=== PATIENT | female | born 1975 | race Two or more races ===

== ENCOUNTER 2018-01-04 11:42 | Observation (INO) | payer MEDICAID ==
--- NOTE | 2018-01-04 13:36 | EDPHY ---
H & P Stated Complaint: LRQ ABD PAIN, RADIATING LOWER BACK/SINCE 0900 Time Seen by Provider: 01/04/18 13:35 HPI/ROS: CHIEF COMPLAINT: Right lower quadrant abdominal pain HISTORY OF PRESENT ILLNESS: 42-year-old female with abdominal surgery only significant for complaining of sudden onset right lower quadrant abdominal pain since 9:30 a.m. Today. Nonradiating. No nausea or vomiting. No abnormal vaginal bleeding or discharge. Menstrual period started today. No back or flank pain. No fever or chills. No trauma. No urinary abnormality. Last oral intake was a bowl of cream of wheat at 9:00 a.m. 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 Appears uncomfortable. 2) HEAD: Normocephalic, atraumatic 3) HEENT: Pupils equal, round, reactive to light bilaterally. Sclera anicteric. [Nasopharynx, oropharynx, clear, no lesions. Moist mucous membrane 4) NECK: Full range of motion, no meningeal signs. 5) LUNGS: Clear auscultation bilaterally, no wheezes, no rhonchi, no retractions. 6) HEART: Regular rate and rhythm, no murmur, no heave, no gallop. 7) ABDOMEN: No guarding, tender to palpation right lower quadrant, negative Bruce's, negative Rovsing's, negative peritoneal sign, 8) MUSCULOSKELETAL: Moving all extremities, no focal areas of tenderness, no obvious trauma. No peripheral edema or discoloration. 9) BACK: No CVA tenderness, no midline vertebral tenderness, no fluctuance, no step-off, no obvious trauma, no visual or palpable abnormality. 10) SKIN: No rash, no petechiae. 11) Psychiatric: Patient is oriented X 3, there is no agitation. DIFFERENTIAL DIAGNOSIS: My differential diagnosis includes, but is not limited to, acute appendicitis, acute cholecystitis, bowel obstruction, acute pancreatitis, ovarian torsion, ectopic , gastritis and urinary tract infection. The patient understands that this diagnosis is provisional and can never be 100% accurate. This is a partial list of diagnoses considered. These considerations are based on history, physical exam, past history and reassessment. - Personal History LMP (Females 10-55): Now Current Tetanus Diphtheria and Acellular Pertussis (TDAP): Yes - Medical/Surgical History Hx Asthma: No Hx Chronic Respiratory Disease: No Hx Diabetes: Yes Hx Cardiac Disease: No Hx Renal Disease: No Hx Cirrhosis: No Hx Alcoholism: No Hx HIV/AIDS: No Hx Splenectomy or Spleen Trauma: No Other PMH: DIABETES II - Social History Smoking Status: Never smoked Constitutional: Initial Vital Signs Temperature (C) 36.4 C 01/04/18 11:46 Heart Rate 78 01/04/18 11:46 Respiratory Rate 16 01/04/18 11:46 Blood Pressure 109/78 01/04/18 11:46 O2 Sat (%) 98 01/04/18 11:46 O2 Delivery Mode Room Air Allergies/Adverse Reactions: No Known Allergies Allergy (Unverified 01/04/18 11:45) Home Medications: Medication Instructions Recorded Insulin Detemir [Levemir] 20 unit SQ BID 01/04/18 Naproxen Sodium [Aleve 220 MG (*)] 220 mg PO BID PRN 01/04/18 glipiZIDE [Glucotrol] 10 mg PO DAILY 01/04/18 Medical Decision Making - Diagnostics Imaging Results: Imaging Impressions Abdomen Ultrasound 01/04/18 13:41 Impression: Acute appendicitis. Findings and recommendations discussed with Emergency Department physician, Harrison Ayoub PA-C, at 1505 hours, on January 04, 2018. Final report concurs with initial preliminary interpretation. Pelvic/Renal Ultrasound 01/04/18 13:41 Impression: Normal ultrasound pelvis. Findings and recommendations discussed with Emergency Department physician, Angela Ayoub at 15:05 hour, 01/04/2018. Final report concurs with initial preliminary interpretation. Images reviewed myself ED Course/Re-evaluation: 1:42 p.m.: Last oral intake 9:00 a.m. today. Will obtain laboratory studies including pelvic and transabdominal ultrasound. Care of patient under supervision of secondary supervising physician Dr Rojas with whom I discussed case 3:04 p.m.: Ultrasound is positive for appendicitis interpreted by staff radiologist will consult with surgery 3:07 p.m.: Phone consultation with on-call surgery Dr. Arcenio Awan who will evaluate patient, recommended IV Invanz. - Data Points Laboratory Results: Laboratory Results 01/04/18 13:42 01/04/18 13:42 01/04/1818 01/04/18 13:42 13:42 13:42 WBC 8.16 10^3/uL 10^3/uL (3.80-9.50) RBC 4.78 10^6/uL 10^6/uL (4.18-5.33) Hgb 15.3 g/dL g/dL (12.6-16.3) Hct 43.1 % % (38.0-47.0) MCV 90.2 fL fL (81.5-99.8) MCH 32.0 pg pg (27.9-34.1) MCHC 35.5 g/dL g/dL (32.4-36.7) RDW 11.7 % % (11.5-15.2) Plt Count 256 10^3/uL 10^3/uL (150-400) MPV 10.6 fL fL (8.7-11.7) Neut % (Auto) 66.7 % % (39.3-74.2) Lymph % (Auto) 26.2 % % (15.0-45.0) [place] % (Auto) 6.3 % % (4.5-13.0) Eos % (Auto) 0.5 % L % (0.6-7.6) Baso % (Auto) 0.1 % L % (0.3-1.7) Nucleat RBC Rel Count 0.0 % % (0.0-0.2) Absolute Neuts (auto) 5.44 10^3/uL 10^3/uL (1.70-6.50) Absolute Lymphs (auto) 2.14 10^3/uL 10^3/uL (1.00-3.00) Absolute Monos (auto) 0.51 10^3/uL 10^3/uL (0.30-0.80) Absolute Eos (auto) 0.04 10^3/uL 10^3/uL (0.03-0.40) Absolute Basos (auto) 0.01 10^3/uL L 10^3/uL (0.02-0.10) Absolute Nucleated RBC 0.00 10^3/uL 10^3/uL (0-0.01) Immature Gran % 0.2 % % (0.0-1.1) Immature Gran # 0.02 10^3/uL 10^3/uL (0.00-0.10) Sodium 138 mEq/L mEq/L (135-145) Potassium 4.1 mEq/L mEq/L (3.3-5.0) Chloride 103 mEq/L mEq/L (97-110) Carbon Dioxide 23 mEq/l mEq/l (22-31) Anion Gap 12 mEq/L mEq/L (8-16) BUN 9 mg/dL mg/dL (7-23) Creatinine 0.5 mg/dL L mg/dL (0.6-1.0) Estimated GFR > 60 Glucose 197 mg/dL H mg/dL (70-100) Calcium 9.1 mg/dL mg/dL (8.5-10.4) Total Bilirubin 1.2 mg/dL mg/dL (0.1-1.4) Conjugated Bilirubin 0.4 mg/dL mg/dL (0.0-0.5) Unconjugated Bilirubin 0.8 mg/dL mg/dL (0.0-1.1) AST 22 IU/L IU/L (14-46) ALT 35 IU/L IU/L (9-52) Alkaline Phosphatase 125 IU/L IU/L (38-126) Total Protein 7.3 g/dL g/dL (6.3-8.2) Albumin 4.1 g/dL g/dL (3.5-5.0) Lipase 188 IU/L IU/L (23-300) Beta HCG, Qual NEGATIVE Urine Color Urine Appearance Urine pH Ur Specific [place] Urine Protein Urine Ketones Urine Blood Urine Nitrate Urine Bilirubin Urine Urobilinogen Ur Leukocyte Esterase Urine RBC Urine WBC Ur Epithelial Cells Urine Bacteria Urine Mucus Urine Glucose 01/04/18 12:05 WBC RBC Hgb Hct MCV MCH MCHC RDW Plt Count MPV Neut % (Auto) Lymph % (Auto) [place] % (Auto) Eos % (Auto) Baso % (Auto) Nucleat RBC Rel Count Absolute Neuts (auto) Absolute Lymphs (auto) Absolute Monos (auto) Absolute Eos (auto) Absolute Basos (auto) Absolute Nucleated RBC Immature Gran % Immature Gran # Sodium Potassium Chloride Carbon Dioxide Anion Gap BUN Creatinine Estimated GFR Glucose Calcium Total Bilirubin Conjugated Bilirubin Unconjugated Bilirubin AST ALT Alkaline Phosphatase Total Protein Albumin Lipase Beta HCG, Qual Urine Color YELLOW Urine Appearance CLEAR Urine pH 5.0 (5.0-7.5) Ur Specific [place] 1.028 (1.002-1.030) Urine Protein NEGATIVE (NEGATIVE) Urine Ketones NEGATIVE (NEGATIVE) Urine Blood 2+ H (NEGATIVE) Urine Nitrate NEGATIVE (NEGATIVE) Urine Bilirubin NEGATIVE (NEGATIVE) Urine Urobilinogen NEGATIVE EU EU (0.2-1.0) Ur Leukocyte Esterase 1+ H (NEGATIVE) Urine RBC 10-15 /hpf H /hpf (0-3) Urine WBC 25-50 /hpf H /hpf (0-3) Ur Epithelial Cells TRACE /lpf /lpf (NONE-1+) Urine Bacteria TRACE /hpf H /hpf (NONE SEEN) Urine Mucus TRACE /lpf /lpf (NONE-1+) Urine Glucose 3+ H (NEGATIVE) Medications Given: Sodium Chloride (Ns) 1,000 mls @ 0 mls/hr IV ONCE ONE PRN Reason: Wide Open Stop: 01/04/18 15:28 Last Admin: 01/04/18 15:28 Dose: 1,000 mls Ketorolac Tromethamine (Toradol) 15 mg IVP ONCE ONE Stop: 01/04/18 15:38 Last Admin: 01/04/18 15:39 Dose: 15 mg Discontinued Medications Ertapenem 1 gm/ Sodium (Chloride) 100 mls @ 200 mls/hr IV EDNOW ONE PRN Reason: Protocol Stop: 01/04/18 15:37 Last Admin: 01/04/18 15:32 Dose: 100 mls Departure - Departure Disposition: [facility] Acute Clinical Impression: Acute appendicitis Qualifiers: Acute appendicitis type: with localized peritonitis Qualified Code(s): K35.3 - Acute appendicitis with localized peritonitis Urinary tract infection Qualifiers: Urinary tract infection type: acute cystitis Hematuria presence: with hematuria Qualified Code(s): N30.01 - Acute cystitis with hematuria Condition: Fair
[2018-01-04 13:52] LABS: PLATELET COUNT 256 10^3/uL (150-400)
[2018-01-04] MEDS ORDERED: ERTAPENEM 1 GM in NS 100 ML IV ONE (15:08)
[2018-01-04] MEDS ORDERED: NS 1,000 ML IV ONE (15:27)
[2018-01-04] MEDS ORDERED: KETOROLAC 15 MG/1 ML SDV ONE (15:37)
[2018-01-04] MEDS ORDERED: KETOROLAC 15 MG/1 ML SDV IVP ONE (15:37)
[2018-01-04] MEDS ORDERED: BUPIVACAINE 0.25% 30 ML SDV ONE (15:53)
[2018-01-04] MEDS ORDERED: LR 1,000 ML IV ONE (16:22)
--- NOTE | 2018-01-04 16:27 | PDGENHP ---
History and Physical - Chief Complaint Abd Pain - History of Present Illness 42 y/o female awoke this morning with nausea and then after eating a light breakfast at 0900 she developed abd pain. She came to the ED and was seen by Manjit Ayoub PA-C and surgical consultation was requested after an abdominal/ pelvic ultrasound showed a dilated appendix History Information - Allergies/Home Medication List Allergies/Adverse Reactions: No Known Allergies Allergy (Unverified 01/04/18 11:45) Home Medications: Insulin Detemir [Levemir] 20 unit SQ BID 01/04/18 [Last Taken 01/04/18] Naproxen Sodium [Aleve 220 MG (*)] 220 mg PO BID PRN 01/04/18 [Last Taken 10:00] glipiZIDE [Glucotrol] 10 mg PO DAILY 01/04/18 [Last Taken 01/03/18] I have personally reviewed and updated: family history, medical history, social history, surgical history - Past Medical History diabetes type 2 - Surgical History Reports: ablation (uterine ablation 2 years ago) Additional surgical history: - Family History Positive for: non-pertinent - Social History Smoking Status: Never smoked Alcohol Use: None Drug Use: None Additional social history: 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 [place] Review of Systems Review of Systems: Cardiac: Reports: no symptoms Respiratory: Reports: no symptoms Gastrointestinal: Reports: abdominal pain, abdominal distention, nausea Genitourinary: Reports: other (started her menses today) Physical Exam Physical Exam: Temp Pulse Resp BP Pulse Ox 37.0 C 76 18 133/95 H 100 01/04/18 15:16 01/04/18 15:42 01/04/18 15:42 01/04/18 15:42 01/04/18 15:42 Constitutional: no apparent distress, uncomfortable Eyes: anicteric sclera Cardiovascular: regular rate and rhythym, systolic murmur (I-II/) Respiratory: no respiratory distress, no rales or rhonchi, clear to auscultation Gastrointestinal: normoactive bowel sounds, tenderness (RLQ with minimal guarding), distension Genitourinary: no bladder fullness Skin: warm, normal color Neurologic: AAOx3 Psychiatric: interacting appropriately, not anxious Lymph, Heme, Immunologic: no cervical LAD, no supraclavicular LAD Lab Data & Imaging Review 01/04/18 13:42 01/04/18 13:42 WBC 8.16 10^3/uL (3.80-9.50) 01/04/18 13:42 RBC 4.78 10^6/uL (4.18-5.33) 01/04/18 13:42 Hgb 15.3 g/dL (12.6-16.3) 01/04/18 13:42 Hct 43.1 % (38.0-47.0) 01/04/18 13:42 MCV 90.2 fL (81.5-99.8) 01/04/18 13:42 MCH 32.0 pg (27.9-34.1) 01/04/18 13:42 MCHC 35.5 g/dL (32.4-36.7) 01/04/18 13:42 RDW 11.7 % (11.5-15.2) 01/04/18 13:42 Plt Count 256 10^3/uL (150-400) 01/04/18 13:42 MPV 10.6 fL (8.7-11.7) 01/04/18 13:42 Neut % (Auto) 66.7 % (39.3-74.2) 01/04/18 13:42 Lymph % (Auto) 26.2 % (15.0-45.0) 01/04/18 13:42 [place] % (Auto) 6.3 % (4.5-13.0) 01/04/18 13:42 Eos % (Auto) 0.5 % (0.6-7.6) L 01/04/18 13:42 Baso % (Auto) 0.1 % (0.3-1.7) L 01/04/18 13:42 Nucleat RBC Rel Count 0.0 % (0.0-0.2) 01/04/18 13:42 Absolute Neuts (auto) 5.44 10^3/uL (1.70-6.50) 01/04/18 13:42 Absolute Lymphs (auto) 2.14 10^3/uL (1.00-3.00) 01/04/18 13:42 Absolute Monos (auto) 0.51 10^3/uL (0.30-0.80) 01/04/18 13:42 Absolute Eos (auto) 0.04 10^3/uL (0.03-0.40) 01/04/18 13:42 Absolute Basos (auto) 0.01 10^3/uL (0.02-0.10) L 01/04/18 13:42 Absolute Nucleated RBC 0.00 10^3/uL (0-0.01) 01/04/18 13:42 Immature Gran % 0.2 % (0.0-1.1) 01/04/18 13:42 Immature Gran # 0.02 10^3/uL (0.00-0.10) 01/04/18 13:42 Sodium 138 mEq/L (135-145) 01/04/18 13:42 Potassium 4.1 mEq/L (3.3-5.0) 01/04/18 13:42 Chloride 103 mEq/L (97-110) 01/04/18 13:42 Carbon Dioxide 23 mEq/l (22-31) 01/04/18 13:42 Anion Gap 12 mEq/L (8-16) 01/04/18 13:42 BUN 9 mg/dL (7-23) 01/04/18 13:42 Creatinine 0.5 mg/dL (0.6-1.0) L 01/04/18 13:42 Estimated GFR > 60 01/04/18 13:42 Glucose 197 mg/dL (70-100) H 01/04/18 13:42 Calcium 9.1 mg/dL (8.5-10.4) 01/04/18 13:42 Total Bilirubin 1.2 mg/dL (0.1-1.4) 01/04/18 13:42 Conjugated Bilirubin 0.4 mg/dL (0.0-0.5) 01/04/18 13:42 Unconjugated Bilirubin 0.8 mg/dL (0.0-1.1) 01/04/18 13:42 AST 22 IU/L (14-46) 01/04/18 13:42 ALT 35 IU/L (9-52) 01/04/18 13:42 Alkaline Phosphatase 125 IU/L (38-126) 01/04/18 13:42 Total Protein 7.3 g/dL (6.3-8.2) 01/04/18 13:42 Albumin 4.1 g/dL (3.5-5.0) 01/04/18 13:42 Lipase 188 IU/L (23-300) 01/04/18 13:42 Beta HCG, Qual NEGATIVE 01/04/18 13:42 Urine Color YELLOW 01/04/18 12:05 Urine Appearance CLEAR 01/04/18 12:05 Urine pH 5.0 (5.0-7.5) 01/04/18 12:05 Ur Specific [place] 1.028 (1.002-1.030) 01/04/18 12:05 Urine Protein NEGATIVE (NEGATIVE) 01/04/18 12:05 Urine Ketones NEGATIVE (NEGATIVE) 01/04/18 12:05 Urine Blood 2+ (NEGATIVE) H 01/04/18 12:05 Urine Nitrate NEGATIVE (NEGATIVE) 01/04/18 12:05 Urine Bilirubin NEGATIVE (NEGATIVE) 01/04/18 12:05 Urine Urobilinogen NEGATIVE EU (0.2-1.0) 01/04/18 12:05 Ur Leukocyte Esterase 1+ (NEGATIVE) H 01/04/18 12:05 Urine RBC 10-15 /hpf (0-3) H 01/04/18 12:05 Urine WBC 25-50 /hpf (0-3) H 01/04/18 12:05 Ur Epithelial Cells TRACE /lpf (NONE-1+) 01/04/18 12:05 Urine Bacteria TRACE /hpf (NONE SEEN) H 01/04/18 12:05 Urine Mucus TRACE /lpf (NONE-1+) 01/04/18 12:05 Urine Glucose 3+ (NEGATIVE) H 01/04/18 12:05 Visualized and Interpreted Chest x-ray results: Yes Assessment & Plan Assessment: Acute appendicitis (Acute) Diabetes Mellitus, insulin dependent possible UTI Plan: We discussed lap appendectomy as well as risks and expected recovery. Invanz 1 gm given in the ED Surgery tenetively scheduled for 5 PM Informed consent was obtained
[2018-01-04] MEDS ORDERED: MIDAZOLAM 2 MG/2 ML VIAL ONE (16:48)
[2018-01-04] MEDS ORDERED: MIDAZOLAM 2 MG/2 ML VIAL IVP ONE (16:48)
--- NOTE | 2018-01-04 16:50 | PDANEPAE ---
ANE History of Present Illness 42 yo for pancho RODRIGUEZ Past Medical History - Cardiovascular History Hx Hypertension: No Hx Arrhythmias: No Hx Chest Pain: No Hx Coronary Artery / Peripheral Vascular Disease: No Hx CHF / Valvular Disease: No Hx Palpitations: No - Pulmonary History Hx COPD: No Hx Asthma/Reactive Airway Disease: No Hx Recent Upper Respiratory Infection: No Hx Oxygen in Use at Home: No Hx Sleep Apnea: No Sleep Apnea Screening Result - Last Documented: Negative - Neurologic History Hx Cerebrovascular Accident: No Hx Seizures: No Hx Dementia: No - Endocrine History Hx Diabetes: Yes Endocrine History Comment: TYPE 2 DM - Renal History Hx Renal Disorders: No - Liver History Hx Hepatic Disorders: No - Neurological & Psychiatric Hx Hx Neurological and Psychiatric Disorders: No - Cancer History Hx Cancer: No - Congenital Disorder History Hx Congenital Disorders: No - GI History Hx Gastrointestinal Disorders: No - Surgical History Prior Surgeries: . HYSTEROSCOPY. BREAST AUGMENTATION ANE Review of Systems Review of Systems: - Exercise capacity METS (RN): 4 METS ANE Patient History - Allergies Allergies/Adverse Reactions: No Known Allergies Allergy (Unverified 01/04/18 11:45) - Home Medications Home Medications: Insulin Detemir [Levemir] 20 unit SQ BID 01/04/18 [Last Taken 01/04/18] Naproxen Sodium [Aleve 220 MG (*)] 220 mg PO BID PRN 01/04/18 [Last Taken 10:00] glipiZIDE [Glucotrol] 10 mg PO DAILY 01/04/18 [Last Taken 01/03/18] - NPO status NPO Status: no food or drink >8 hours NPO Since - Liquids (Date): 01/04/18 NPO Since - Liquids (Time): 10:30 NPO Since - Solids (Date): 01/04/18 NPO Since - Solids (Time): 09:00 - Anes Hx Anes Hx: no prior problems - Smoking Hx Smoking Status: Never smoked - Alcohol Use Alcohol Use: None - Family Anes Hx Family Hx Anesthesia Complications: NONE ANE Labs/Vital Signs - Labs Result Diagrams: 01/04/18 13:42 01/04/18 13:42 - Vital Signs Blood Pressure: 134/94 Heart Rate: 74 Respiratory Rate: 16 O2 Sat (%): 99 Height: 5 ft 5 in Weight: 72.575 kg
[2018-01-04] MEDS ORDERED: fentaNYL 100 MCG/2 ML INJ ONE ×3 (17:00→17:38)
[2018-01-04] MEDS ORDERED: PROPOFOL/EMULSION 500 MG/50 ML BOTTLE IV ONE (17:00)
[2018-01-04] MEDS ORDERED: ONDANSETRON 4 MG/2 ML VIAL IVP PRN (17:40)
[2018-01-04] MEDS ORDERED: fentaNYL 100 MCG/2 ML INJ IVP PRN (17:40)
[2018-01-04] MEDS ORDERED: oxyCODONE IR 5 MG TAB PO PRN (17:40)
[2018-01-04] MEDS ORDERED: NALOXONE HCL 0.4 MG/ML INJ IVP PRN (17:40)
[2018-01-04] MEDS ORDERED: HYDROmorphONE/DILAUDID 1 MG/ML INJ IVP PRN (17:40)
[2018-01-04] MEDS ORDERED: PROMETHAZINE HCL 25 MG/ML INJ IVP PRN (17:40)
[2018-01-04] MEDS ORDERED: SUGAMMADEX SODIUM 200 MG/2 ML VIAL IVP ONE (17:44)
[2018-01-04] MEDS ORDERED: ONDANSETRON 4 MG/2 ML VIAL ONE (18:08)
[2018-01-04] MEDS ORDERED: ONDANSETRON DISINTEGRATING 4 MG TAB PO PRN (18:09)
--- NOTE | 2018-01-04 18:09 | POSTOPPROG ---
Post Op Note Date of Operation: 01/04/18 Surgeon: Ajay Awan (, FACS) Anesthesiologist: Aram Michael MD Anesthesia: GET(General Endotracheal) Pre-op Diagnosis: appendicitis Post-op Diagnosis: same Procedure: laparoscopic appendectomy Findings: dilated appendix Inf/Abcess present in the surg proc area at time of surgery?: Yes Depth: Organ Space EBL: Minimal (5ml) Specimen(s): dilated appendix
--- NOTE | 2018-01-04 18:55 | POSTANESTH ---
Post Anesthetic Evaluation Cardiovascular Status: Normal, Stable Respiratory Status: Normal, Stable Level of Consciousness/Mental Status: Can Participate in Eval Pain Control: Adequate, Prn Tx Ordered Nausea/Vomiting Control: Adequate, Prn Tx Ordered Complications Possibly Related to Anesthesia: None Noted
--- NOTE | 2018-01-04 20:04 | GOP ---
[f rep st] OPERATIVE REPORT DATE OF OPERATION: 01/04/2018 SURGEON: Ajay Awan MD, FACS ANESTHESIA: General endotracheal. ANESTHESIOLOGIST: Lesly Tyler MD. PREOPERATIVE DIAGNOSIS: Appendicitis. POSTOPERATIVE DIAGNOSIS: Appendicitis. PROCEDURE PERFORMED: Laparoscopic appendectomy. FINDINGS: Extensive omental adhesions to the anterior abdominal wall midline related to prior . Dilatation of the tip of the appendix without perforation, gangrene or significant suppurative change. Questionable mucocele of the distal appendix submitted to Pathology for permanent section. ESTIMATED BLOOD LOSS: 5 mL. DESCRIPTION OF PROCEDURE: After informed consent was obtained, the patient was brought to the operating room and placed under general anesthesia. The abdomen was prepped and draped in usual fashion. Before proceeding, a time-out and identification of the patient was performed. 0.25% Marcaine was used to infiltrate the abdominal wall at all incision sites. A longitudinal incision was made through the base of the umbilicus and ventral traction applied to the abdominal wall as the Veress needle was introduced into the peritoneal cavity. Position was confirmed by saline infusion, and a pneumoperitoneum was established with CO2 gas to a pressure of 15 mmHg. The Veress needle was withdrawn and replaced with a 5 mm bladeless trocar. A 30-degree scope was introduced, and the peritoneal cavity was visualized. The patient had adhesions between the omentum and the anterior abdominal wall below the umbilicus. A left lower quadrant 12 mm port was established under direct visualization, and this allowed introduction of the Harmonic Scalpel, which was used to take down the omental adhesions from the abdominal wall. A second 5 mm port was placed in the suprapubic position, and this allowed introduction of a second atraumatic forceps. The appendix was visualized, grasped by the base, and the mesoappendix was taken down with the Harmonic Scalpel. The appendix was then from the cecum with a single firing of the THAIS stapler and retrieved through the left lower quadrant port site. It was mildly dilated at the tip and had a somewhat clear mucoid appearance through the serosa, and was submitted intact for permanent section. The pelvic area was inspected. The right tube and ovary were noted to be normal. The uterus appeared unremarkable. Left ovary could not be visualized easily because of adhesions. The left lower quadrant port site was closed with a transfascial closure needle and 0 Vicryl suture. Pneumoperitoneum was evacuated. The subcutaneous tissues were approximated with 3-0 Monocryl suture. Skin was closed with 4-0 Monocryl suture in a subcuticular fashion. Topical Dermabond was applied. Patient was extubated and brought to the recovery room in satisfactory condition. Needle, sponge and instrument counts were correct. COMPLICATIONS: None. /[id number]/MODL MTDD
[2018-01-04] MEDS: INSULIN GLARGINE 100 UNITS/ML UNIT SC SCH (21:23)
[2018-01-04] MEDS: HYDROCODONE/APAP 5/325 TAB PO PRN (21:23)
[2018-01-05] MEDS: HYDROCODONE/APAP 5/325 TAB PO PRN ×2 (03:11→07:52)
--- NOTE | 2018-01-05 06:23 | PDDCSUM ---
Discharge Summary Discharge Summary: #[id number] Clement Awan MD, FACS
--- NOTE | 2018-01-05 06:47 | GDS ---
[f rep st] DISCHARGE SUMMARY DISCHARGE DIAGNOSES: 1. Acute appendicitis. 2. Insulin-dependent diabetes mellitus (type 2). PROCEDURES PERFORMED: 01/04, laparoscopic appendectomy. HOSPITAL COURSE: For details of admission history and physical, please see dictated summary. Briefl y, patient is a 42-year-old female who presented with abdominal pain localizing to the right lower qu adrant. She was seen in the emergency department and an ultrasound was performed which showed a dila melina appendix, noncompressible. Clinical findings were consistent with appendicitis and she was broug ht to the operating room for a laparoscopic appendectomy, at which time she was found have a mild dil ated appendiceal tip that appeared to contain a mucoid substance. This was submitted intact for perm anent section. Following surgery, patient felt improved. She was maintained on her previous regimen of insulin and following surgery, glipizide was restarted. Her blood sugars were mildly elevated in the perioperative period ranging from 103-326. She was able tolerate a regular diet and on the morn ing of discharge was afebrile, ambulatory. Her incision is healing well without sign of infection. She received 1 dose of perioperative ertapenem and no additional antibiotics were administered. The patient was discharged home to follow up in my office in the upcoming week. DISCHARGE MEDICATIONS: Included hydrocodone 1 p.o. q.4 hours p.r.n., #20; glipizide 10 mg p.o. daily ; Levemir, long-acting insulin, 20 units subcu b.i.d.; and she was advised to start Senokot S 1 p.o. twice daily as well. The patient will follow up my office in the following in the upcoming week and will monitor her blood sugars at home, which she has not been doing on a regular basis. CONDITION: At time of discharge, improved. Followup arranged in my office in 1 week. /[id number]/MODL
[2018-01-05 07:22] VITALS: BP 106/70
[2018-01-05] MEDS: INSULIN GLARGINE 100 UNITS/ML UNIT SC SCH (07:53)
[2018-01-05] MEDS ORDERED: glipiZIDE 10 MG TAB PO SCH (09:00)
== END 2018-01-05 10:16 | disposition home or self-care (01) ==
LOC: F3E 18:50
PROVIDERS: ADMIT Surgery; ATTEND Surgery
PROC: 0DTJ4ZZ Resection of Appendix, Percutaneous Endoscopic Approach (ICD-10-PCS; principal; 2018-01-04 16:45)
DX: K35.80 Unspecified acute appendicitis (principal); E11.9 Type 2 diabetes mellitus without complications; Z79.4 Long term (current) use of insulin
CPT/HCPCS: 96374; J1335; J1815; J1885; J2250; J2405; J2704; J3010